=== PATIENT | female | born 1980 | race Caucasian/White ===

== ENCOUNTER 2017-05-08 22:02 | Emergency (ER) | payer OTHER ==
[~2017-05-08] VITALS: Ht 162.6 cm; Wt 80.0 kg
[~2017-05-08 22:02] MED LIST: AZITTAB PO; PRED10TA PO
[2017-05-08 22:07] VITALS: TEMP 36.6; Ht 162.6 cm; Wt 80.0 kg
[2017-05-08] MEDS ORDERED: OXYC1TAB3 PO (22:20)
[2017-05-08 22:26] VITALS: BP 128/67; PULSE 82; O2SAT 96
[2017-05-08] MEDS ORDERED: OXYCODONE IR HOME PACK PO ONE (22:30)
--- NOTE | 2017-05-08 23:35 | EMERGENCY ROOM VISIT NOTE ---
History Report prepared by Debbie: [facility] Under the Supervision of: Dr. Good Romano M.D. First contact with patient: 22:11 Chief Complaint: DENTAL PAIN Stated Complaint: DENTAL PAIN Nursing Triage Summary: left lower dental pain History of Present Illness The patient is a 36 year old female who presents to the Emergency Room with complaints of persistent dental pain starting 1 month ago. She has been having problems with a tooth on the lower left side. She has gone to see her dentist and the tooth will be removed in 2 months. She finished a course of penicillin 1 week ago. She is still having pain and is worried that it might be infected. She complains of headache. She took Excedrin to no significant relief. She denies any vomiting. She is unsure if she has a fever. She denies other medical problems. Source of History: patient Onset: 1 month ago Position: other (dental) Quality: other (pain) Timing: other (persistent) Associated Symptoms: + headache, No vomiting Review of Systems See HPI for pertinent positives & negatives. A total of 4 systems reviewed and were otherwise negative. Past Medical & Surgical Medical Problems: (1) Insect sting Surgical Problems: (1) S/P cholecystectomy Family History No pertinent family history stated. Social History Smoking Status: Current Every Day Smoker Housing Status: lives with family Current/Historical Medications Scheduled Azithromycin (Z-Imtiaz) (Zithromax (Z-Imtiaz)), 0 PO UD Prednisone (Prednisone), 10 MG PO UD Scheduled PRN Oxycodone Ir (Roxicodone Ir), 5 MG PO Q6 PRN for Pain Allergies Coded Allergies: No Known Allergies (Verified , 07/20/14) Physical Exam Vital Signs Date Time Temp Pulse Resp B/P (MAP) Pulse Ox O2 Delivery O2 Flow Rate FiO2 05/08/17 22:26 82 16 128/67 96 05/08/17 22:07 36.6 76 16 124/78 99 Room Air Physical Exam Constitutional: Vital signs reviewed. Eyes: Pupils are equal round reactive to light. Conjunctiva are noninjected. ENT: Pharynx is clear without erythema or exudate. Mucous membranes are moist. Neck supple without meningeal signs. No facial swelling. Fractured left 1st maxillary molar without percussion tenderness or gingival swelling or edema. No cervical lymphadenopathy. Respiratory: Clear to auscultation bilaterally. Breath sounds are equal bilaterally. Cardiovascular: Regular rate and rhythm. No rubs or gallops. Neurological: The patient is awake and alert. No focal deficits. Psychiatric: Normal affect. Medical Decision & Procedures Medications Administered Medications (Trade) Dose Ordered Sig/Brittnee Route Start Time Stop Time Status Last Admin Dose Admin Oxycodone HCl (Roxicodone Immediate Rel 5MG Home Pack) 1 homepack UD ONCE PO 05/08/17 22:30 05/08/17 22:31 DC 05/08/17 22:29 1 HOMEPACK ED Course 221: The patient was evaluated in room C8. A complete history and physical exam was performed. 2219: I discussed tonight's findings with her. She verbalized agreement of the treatment plan. She was discharged home. 2229: Oxycodone HCl 1 homepack PO. Medical Decision This is a 36-year-old female presents with dental pain. Differential diagnosis includes periapical abscess, odontalgia, dental caries. I did perform a limited focused review of portions of the patient's old chart on the electronic medical record. The patient has had no recent pertinent visits to this hospital. Medication Reconciliation: I attest that I have personally reviewed the patient' s current medication list. Blood Pressure Screening: Patient was found to have a slightly elevated blood pressure due to circumstances. I do not believe that the patient requires hypertension monitoring. I did evaluate the patient as noted above. She is presenting with dental pain for some time. She has seen her dentist for this but her pain has increased and her significant other thought that she might of had some facial swelling which she did not notice and denies. On my examination she does not have any facial swelling or lymphadenopathy. She has an old fracture to the left first maxillary molar with decay. There is no percussion tenderness to suggest an abscess. No gingival hyperemia or swelling. At this time I did not feel antibiotics were indicated. I did recommend NSAIDs for pain and follow up with her dentist for an earlier appointment. She was given a short prescription for oxycodone for breakthrough pain and given precautions regarding this medication. [place] Drug Monitoring Program Search Results: patient reviewed within database, no issues identified Impression Primary Impression: Odontalgia Scribe Attestation The scribe's documentation has been prepared under my direct and personally reviewed by me in its entirety. I confirm that the note above accurately reflects all work, treatment, procedures, and medical decision making performed by me. Departure Information Dispostion Home / Self-Care Prescriptions Oxycodone Ir (Roxicodone Ir) 5 Mg Tab 5 MG PO Q6 Y for Pain, #14 TAB Prov: Good Romano M.D. 05/08/17 Referrals No Doctor, Assigned (PCP) Forms HOME CARE DOCUMENTATION FORM, IMPORTANT VISIT INFORMATION Patient Instructions My [facility], Toothache - [facility] Additional Instructions You have been examined and treated today on an emergency basis only. This is not a substitute for, or an effort to provide, complete comprehensive medical care. It is impossible to recognize and treat all injuries or illnesses in a single emergency department visit. It is therefore important that you follow up closely with your dentist. Call as soon as possible for an appointment. Return for worsening symptoms or if you develop fever, vomiting, facial swelling or any other concerning symptoms.
== END 2017-05-08 22:51 | disposition home or self-care (01) ==
LOC: C.EDB 22:04 → C.EDC 22:51
DX: K08.89 Other specified disorders of teeth and supporting structures (principal); S02.5XXA Fracture of tooth (traumatic), initial encounter for closed fracture; X58.XXXA Exposure to other specified factors, initial encounter; F17.200 Nicotine dependence, unspecified, uncomplicated